=== PATIENT | male | born 1945 | race Caucasian/White ===

== ENCOUNTER 2024-03-07 13:28 | Outpatient (CLI) | payer MEDICARE | END 2024-03-07 13:29 | disposition home or self-care (01) | LOC: CSHULT 13:28 | PROVIDERS: ATTEND Internal Medicine | DX: R60.0 Localized edema (principal); R06.09 Other forms of dyspnea; I08.3 Combined rheumatic disorders of mitral, aortic and tricuspid valves | CPT/HCPCS: 93306 ==